=== PATIENT | female | born 1945 | race Native Hawaiian/Other Pacific Islander ===

== ENCOUNTER 2018-08-20 10:03 | Outpatient (CLI) | payer MEDICARE | END 2018-08-20 10:04 | disposition home or self-care (01) | LOC: C.LAB 10:03 | DX: E11.65 Type 2 diabetes mellitus with hyperglycemia (principal) ==

== ENCOUNTER 2018-10-15 09:11 | Outpatient (CLI) | payer MEDICARE | END 2018-10-15 09:12 | disposition home or self-care (01) | LOC: C.USIC 09:11 ==

== ENCOUNTER 2018-12-14 07:50 | Outpatient (CLI) | payer MEDICARE, OTHER | END 2018-12-14 07:51 | disposition home or self-care (01) | LOC: C.MAMMO 07:50 | DX: Z12.31 Encounter for screening mammogram for malignant neoplasm of breast (principal) ==

== ENCOUNTER 2018-12-14 09:00 | Outpatient (CLI) | payer MEDICARE, OTHER | END 2018-12-14 09:01 | disposition home or self-care (01) | LOC: C.LAB 09:00 | DX: E16.2 Hypoglycemia, unspecified (principal); R63.8 Other symptoms and signs concerning food and fluid intake ==

== ENCOUNTER 2018-12-14 09:04 | Outpatient (CLI) | payer MEDICARE, OTHER | END 2018-12-14 09:05 | disposition home or self-care (01) | LOC: C.LAB 09:04 | DX: E11.65 Type 2 diabetes mellitus with hyperglycemia (principal); I10 Essential (primary) hypertension; E04.2 Nontoxic multinodular goiter; E78.2 Mixed hyperlipidemia; E01.8 Other iodine-deficiency related thyroid disorders and allied conditions; E06.3 Autoimmune thyroiditis; E88.81 Metabolic syndrome and other insulin resistance; D51.9 Vitamin B12 deficiency anemia, unspecified; E55.9 Vitamin D deficiency, unspecified; D64.9 Anemia, unspecified; N30.00 Acute cystitis without hematuria; R30.9 Painful micturition, unspecified; N18.9 Chronic kidney disease, unspecified ==